=== PATIENT | female | born 1940 | race Caucasian/White ===

== ENCOUNTER 2021-12-20 20:21 | Inpatient (IN) | payer BC, OTHER ==
[~2021-12-20] VITALS: Ht 154.9 cm; Wt 71.7 kg
--- NOTE | 2021-12-20 20:27 | NUR ---
[facility] 860 C/O COUGHED UP DARK COFFEE GROUND BLOOD MIXED WITH SPUTUM. (+) COUGH. ALSO C/O OF BURPING AND EPISODES OF EMESIS. PLACED COMFORTABLY IN BED. VITALS CHECKED. ATTACHED TO MONITOR.
[2021-12-20] MEDS ORDERED: IV NS 0.9% 1,000 ML BAG IV ONE (20:30)
[2021-12-20] MEDS ORDERED: ONDANSETRON HCL/PF 4 MG/2 ML VIAL IVP ONE (20:30)
--- NOTE | 2021-12-20 20:35 | NUR ---
RAD THE BEDSIDE
[2021-12-20] MEDS ORDERED: ONDANSETRON HCL/PF 4 MG/2 ML VIAL ONE (20:43)
--- NOTE | 2021-12-20 20:49 | NUR ---
COVID ANTIGEN SWAB COLLECTED AND SENT TO LAB
--- NOTE | 2021-12-20 20:55 | NUR ---
IV CANNULA G20 INSERTED ON LEFT FA. BLOOD DRAWN AND SENT TO LAB
--- NOTE | 2021-12-20 21:12 | NUR ---
PATIENT CAME FROM CT SCAN
[2021-12-20 21:21] LABS: BASOPHILS # (AUTO) 0.1 K/uL (0.0-0.2); BASOPHILS % (AUTO) 1.1 % (0.0-2.0); EOSINOPHILS % (AUTO) 2.8 % (0.0-6.0); HEMATOCRIT 38 % (33-45); HEMOGLOBIN 12.6 g/dL (11.5-14.8); LYMPHOCYTES # (AUTO) 1.6 K/uL (0.8-4.8); LYMPHOCYTES % (AUTO) 23.6 % (20.0-44.0); MEAN CORPUSCULAR HGB CONC 33 g/dl (31.0-36.0); MEAN CORPUSCULAR VOLUME 85 fL (82-100); MONOCYTES # (AUTO) 0.6 K/uL (0.1-1.30); MONOCYTES % (AUTO) 8.3 % (2.0-12.0); NEUTROPHILS # (AUTO) 4.4 K/uL (1.8-8.9); NEUTROPHILS % (AUTO) 64.2 % (43.0-81.0); PLATELET COUNT (AUTO) 265 K/uL (150-450); WHITE BLOOD COUNT (AUTO) 6.8 K/uL (4.3-11.0)
[2021-12-20 21:46] LABS: CALCIUM, SERUM 9.1 mg/dL (8.5-10.1); CARBON DIOXIDE 22 mmol/L (21-32); CHLORIDE 109 mmol/L (98-107); CREATININE 0.7 mg/dL (0.6-1.3); GLUCOSE 108 mg/dL (74-106); POTASSIUM 5.3 mmol/L (3.5-5.1); SODIUM SERUM 140 mmol/L (136-145); UREA NITROGEN, BLOOD 24 mg/dL (7-18)
[2021-12-20 21:53] LABS: ALANINE AMINOTRANSFERASE 18 U/L (12-78); ALBUMIN 3.3 g/dL (3.4-5.0); ALKALINE PHOSPHATASE 72 U/L (46-116); ASPARTATE AMINOTRANSFERASE 36 U/L (15-37); BILIRUBIN,TOTAL 0.3 mg/dL (0.2-1.0); LIPASE 115 U/L (73-393); TOTAL PROTEIN, SERUM 7.2 g/dL (6.4-8.2)
[2021-12-20] MEDS ORDERED: IV NS 0.9% 1,000 ML IV PRN (22:00)
[2021-12-20] MEDS ORDERED: Z GUARD REMEDY 4 OZ OINT TP PRN (22:00)
[2021-12-20] MEDS ORDERED: MAGNESIUM HYDROXIDE 30 ML UDC PO PRN (22:00)
[2021-12-20] MEDS ORDERED: ONDANSETRON HCL/PF 4 MG/2 ML VIAL IVP PRN (22:00)
[2021-12-20] MEDS ORDERED: PANTOPRAZOLE 40 MG VIAL IV ONE (22:00)
[2021-12-20] MEDS ORDERED: ACETAMINOPHEN 325 MG TABLET PO PRN (22:00)
[2021-12-20] MEDS ORDERED: ZOLPIDEM TARTRATE 5 MG TABLET PO PRN (22:00)
[2021-12-20] MEDS ORDERED: MAG HYDROX/AL HYDROX/SIMETH 30 ML UDC PO PRN (22:00)
[2021-12-20] MEDS ORDERED: PANTOPRAZOLE 40 MG VIAL ONE (22:44)
--- NOTE | 2021-12-20 22:55 | NUR ---
PATIENT IS CONFUSED. REALLY WANTS TO GO HOME. SHE WAS SURPRISED WHY SHE IS IN THE ER AND SHE DENIED THAT SHE WAS COUGHING AND VOMITED COFFEE COLORED VOMITUS. IT WAS EXPLAINED TO HER THAT SHE NEEDS TO BE ADMITTED TO BE MONITORED.
[2021-12-21] VITALS (9 sets, daily range): BP systolic 127–163; BP diastolic 46–93
--- NOTE | 2021-12-21 00:18 | NUR ---
REPORT GIVEN TO VICKIE CRUZ.
--- NOTE | 2021-12-21 00:20 | NUR ---
IV CANNULA G22 INSERTED ON RIGHT FA. PATIENT WAS INSTRUCTED NOT TO REMOVED THE LINE
--- NOTE | 2021-12-21 00:45 | NUR ---
TRANSFER PATIENT TO ROOM
--- NOTE | 2021-12-21 01:41 | NUR ---
MS/REEXAMINER NOTE RECEIVED PT FROM E.R. @0045 VIA GURNEY TO [id number]. PT CAME FROM [facility], SENT TO [place] D/T COFFEE-GROUND EMESIS. PT AWAKE, ALERT TO NAME, UNDERSTANDS CONCEPTS AND ABLE TO CARRY ON CONVERSATIONS, BUT WITH CONFUSION/DISORIENTED TO TIME/PLACE, DOES NOT KNOW WHY SHE'S HERE. PT ABLE TO AMBULATE WITH SLOW STEADY GAIT. IV ACCESS: R-FA #22G INTACT/PATENT/FLUSHES WELL. STARTED NS @75ML/HR ORDERED. PT IN NO ACUTE DISTRESS. SAFETY MEASURES IN PLACE, BED IN LOWEST LOCKED POSITION, S/R UP X2, BED ALARM ON, CALL LIGHT WITHIN REACH. WILL CONT TO MONITOR.
[2021-12-21 01:54] LABS: HEMOGLOBIN 9.6 g/dL (11.5-14.8)
--- NOTE | 2021-12-21 06:00 | NUR ---
RN NOTE PT HAD PULLED OUT IV LINE ON R-FA. REINSERTED IV TO L-FA #22G WITH GOOD BLOOD RETURN AND EKATERINA WELL
[2021-12-21 06:36] LABS: ALBUMIN 3.2 g/dL (3.4-5.0); BILIRUBIN,TOTAL 0.3 mg/dL (0.2-1.0); CALCIUM, SERUM 8.5 mg/dL (8.5-10.1); CREATININE 0.8 mg/dL (0.6-1.3); MAGNESIUM 2.1 mg/dL (1.8-2.4); PHOSPHORUS 2.7 mg/dL (2.5-4.9); TOTAL PROTEIN, SERUM 6.6 g/dL (6.4-8.2)
[2021-12-21 06:41] LABS: BASOPHILS % (AUTO) 0.8 % (0.0-2.0); EOSINOPHILS % (AUTO) 3.4 % (0.0-6.0); HEMATOCRIT 37 % (33-45); HEMOGLOBIN 12.2 g/dL (11.5-14.8); LYMPHOCYTES # (AUTO) 1.6 K/uL (0.8-4.8); LYMPHOCYTES % (AUTO) 30.9 % (20.0-44.0); MEAN CORPUSCULAR HGB CONC 33 g/dl (31.0-36.0); MEAN CORPUSCULAR VOLUME 85 fL (82-100); MONOCYTES # (AUTO) 0.4 K/uL (0.1-1.30); MONOCYTES % (AUTO) 8.2 % (2.0-12.0); NEUTROPHILS % (AUTO) 56.7 % (43.0-81.0); PLATELET COUNT (AUTO) 267 K/uL (150-450); RED BLOOD CELL COUNT(AUTO) 4.38 MIL/uL (4.0-5.2); WHITE BLOOD COUNT (AUTO) 5.3 K/uL (4.3-11.0)
--- NOTE | 2021-12-21 07:02 | NUR ---
RN NOTE PT AWAKE IN BED, ALERT WITH CONFUSION. FREQUENT REORIENTATION PROVIDED. RESPIRATIONS EVEN/UNLABORED. PT AMBULATED TO BR WITH STANDBY ASSIST PROVIDED. PT WITH NO BLEEDING NOTED. NPO OBSERVED ORDERED. PT WITH NO C/O PAIN DURING THE SHIFT. ASSIST WITH ALL ADL'S PROVIDED. NO ACUTE DISTRESS NOTED. SAFETY MEASURES MAINTAINED.
[2021-12-21] MEDS ORDERED: QUET25TA PO (07:29)
[2021-12-21] MEDS ORDERED: CHOL200013 PO (07:29)
[2021-12-21] MEDS ORDERED: LORA10TA68 PO (07:29)
[2021-12-21] MEDS ORDERED: ACET325T53 MC (07:29)
[2021-12-21] MEDS ORDERED: DONE10TA44 PO (07:29)
[2021-12-21] MEDS ORDERED: DOCU-141 PO (07:29)
[2021-12-21] MEDS ORDERED: IPRA42SP NS (07:29)
[2021-12-21] MEDS ORDERED: ASCO500C17 PO (07:29)
[2021-12-21] MEDS ORDERED: QUET50TA PO (07:29)
--- NOTE | 2021-12-21 07:30 | NUR ---
RN OPENING NOTES RECEIVED PATIENT IN BED, AWAKE, VERBALLY RESPONSIVE. NOTED WITH CONFUSION. REORIENTED NEEDED. NO SIGNS OF ACUTE DISTRESS NOTED. STABLE ON ROOM AIR, NO SOB NOTED, BREATHING EVEN AND UNLABORED. DENIES ANY PAIN AT THIS TIME. NOTED WITH IV ACCESS ON LEFT FORE ARM #22G, INTACT AND PATENT WITH NS @ 75ML/HR RUNNING. SAFETY MEASURE IN PLACE. BED IN LOWEST AND LOCKED POSITION, SIDE RAILS UP X2, CALL LIGHT PLACED WITHIN EASY REACH. WILL CONTINUE TO MONITOR PATIENT.
[2021-12-21] MEDS: PANTOPRAZOLE 40 MG VIAL IV SCH ×2 (09:06→20:58)
--- NOTE | 2021-12-21 09:30 | NUR ---
RN NOTES CALLED PATIENTS JOSÉ RYAN AND OBTAINED CONSENT FOR EGD, ANESTHESIA AND BLOOD TRANSFUSION. TELEPHONE/VERBAL CONSENT GIVEN, VERIFIED BY ANOTHER RN AUGUST.
--- NOTE | 2021-12-21 09:50 | NUR ---
RN NOTES PATIENT PICKED UP VIA BED FOR EGD PROCEDURE. IN STABLE CONDITION.
[2021-12-21] MEDS ORDERED: ANESTHESIA TRAY IN PYXIS 1 EA TRAY MC ONE (09:53)
--- NOTE | 2021-12-21 11:00 | NUR ---
RN NOTE PATIENT BACK FROM EGD, TRANSPORTED VIA BED ACCOMPANIED BY SANTINO JOHNSTON, IN STABLE CONDITION. VITAL SIGNS TAKEN FOLLOWS: 127/65, 62, 98.0, 18, SPO2 100% RA. WILL CONTINUE TO MONITOR PATIENT.
[2021-12-21] MEDS: SUCRALFATE 1 G/10 ML UDC GT SCH ×3 (11:54→21:52)
--- NOTE | 2021-12-21 16:35 | NUR ---
RN NOTE PATIENT PULLED OUT PERIPHERAL LINE. NO BLEEDING NOTED. PATIENT REFUSED RE INSERTION.
[2021-12-21] MEDS ORDERED: LORATADINE 10 MG TABLET PO PRN (17:00)
[2021-12-21] MEDS: QUETIAPINE FUMARATE 25 MG TABLET PO SCH (17:15)
--- NOTE | 2021-12-21 18:51 | NUR ---
MS RN CLOSING NOTES PATIENT AWAKE , AMBULATING , VERBALLY RESPONSIVE. NOTED WITH CONFUSION. REORIENTED NEEDED.ALL DUE MEDS GIVEN . NO SIGNS OF ACUTE DISTRESS NOTED. STABLE ON ROOM AIR, NO SOB NOTED, BREATHING EVEN AND UNLABORED. DENIES ANY PAIN AT THIS TIME. EGD WAS DONE AND STILL WATING FOR THE RESULT AND CAME BACK STABLE . IV ACCESS PULLED OUT AND REFUSED TO BE REINSERTED . SAFETY MEASURE IN PLACE. BED IN LOWEST AND LOCKED POSITION, SIDE RAILS UP X2, CALL LIGHT PLACED WITHIN EASY REACH. ENDORSED TO THE NEXT SHIFT
--- NOTE | 2021-12-21 19:00 | NUR ---
received patient alert and orientated X2 smiling and ambulating in the corridor steady on her legs refusing IV placement
[2021-12-21] MEDS ORDERED: DONEPEZIL 5 MG TABLET PO SCH (22:00)
[2021-12-21] MEDS ORDERED: QUETIAPINE FUMARATE 25 MG TABLET PO SCH (22:00)
--- NOTE | 2021-12-22 05:26 | NUR ---
ENDING NOTES: alert and orientated X2 ambulates the corridors steady on her legs pleasent and friendly and is coop[erative slept in bed 9 hours this night no sob on room no noted bleeding or c/o discomfort refusing to have an IV replaced pulled it out on day shift
--- NOTE | 2021-12-22 07:30 | NUR ---
RN OPENING NOTE PATIENT IS IN BED AWAKE, ALERT ORIENTED X 2. ON ROOM AIR SATTING AT 97%. DENIES PAIN, NOT IN ANY FORM OF DISTRESS. BED IS LOCKED IN LOWEST POSITION, 3 SIDE RAILS UP, CALL LIGHT WITHIN REACH. WILL MONITOR THROUGHOUT SHIFT.
[2021-12-22 08:00] VITALS: BP_SYST 152; BP_SYST 167; BP_DIAS 78
[2021-12-22] MEDS ORDERED: CHOLECALCIFEROL 1,000 UNIT TABLET (VIT D3) PO SCH (09:00)
[2021-12-22] MEDS ORDERED: ASCORBIC ACID 500 MG TABLET PO SCH (09:00)
[2021-12-22] MEDS ORDERED: DOCUSATE SODIUM 100 MG CAPSULE PO SCH (09:00)
[2021-12-22] MEDS ORDERED: IPRATROPIUM BROMIDE 0.06% 15 ML NASPR NS SCH (09:00)
[2021-12-22] MEDS: PANTOPRAZOLE 40 MG VIAL IV SCH (10:03)
[2021-12-22] MEDS: QUETIAPINE FUMARATE 25 MG TABLET PO SCH ×2 (10:03→17:00)
[2021-12-22] MEDS: SUCRALFATE 1 G/10 ML UDC GT SCH ×4 (10:07→17:30)
--- NOTE | 2021-12-22 12:44 | NUR ---
RN NOTE PATIENT REFUSED SUCRALFATE ORAL SUSPENSION. STATES SHE WANTS TO GO HOME. EXPLAINED TO HER THE NEED FOR TAKING THE MEDICATION BUT PATIENT STILL REFUSED.
[2021-12-22] MEDS: IPRATROPIUM BROMIDE 0.03 % 30 ML NASPR NS SCH ×2 (12:46→17:00)
[2021-12-22] MEDS ORDERED: PANT40TA49 PO (14:55)
[2021-12-22 16:00] VITALS: BP 153/85
--- NOTE | 2021-12-22 17:00 | NUR ---
MEDICATIONS NOT GIVEN. PATIENT IS DISCHARGED.
--- NOTE | 2021-12-22 17:48 | NUR ---
RN CLOSING NOTE PATIENT DISCHARGED TO [facility] VIA AMBULANCE CREW. REPORT RECEIVED BY ANNALISA JOHNSTON AT [facility]. DISCHARGE PACKET AND EDUCATIONAL MATERIALS EXPLAINED AND GIVEN TO PATIENT. PATIENT IS NOT IN DISTRESS AT TIME OF DISCHARGE. WITH VITAL SIGNS OF T 98.1, RR 20, HR 104, BP 133/85, O2 SAT AT 97%.
[2021-12-22] MEDS ORDERED: PANTOPRAZOLE 40 MG TABLET.DR PO SCH (21:00)
== END 2021-12-22 17:48 | DRG 368 ==
LOC: ER 20:24 → TELE 12-21 00:32 → MED 12-21 00:59 → UNDODISIN 12-22 17:48
PROVIDERS: ADMIT Nurse Practitioner Acute Care; ATTEND Nurse Practitioner Acute Care
PROC: 0DB58ZX Excision of Esophagus, Via Natural or Artificial Opening Endoscopic, Diagnostic (ICD-10-PCS; principal; 2021-12-21)
DX: K21.01 Gastro-esophageal reflux disease with esophagitis, with bleeding (principal); K29.71 Gastritis, unspecified, with bleeding; K57.30 Diverticulosis of large intestine without perforation or abscess without bleeding; E87.5 Hyperkalemia; F32.9 Major depressive disorder, single episode, unspecified; Z20.822 Contact with and (suspected) exposure to COVID-19; F41.9 Anxiety disorder, unspecified; G30.0 Alzheimer's disease with early onset; F02.80 Dementia in other diseases classified elsewhere, unspecified severity, without behavioral disturbance, psychotic disturbance, mood disturbance, and anxiety; F25.9 Schizoaffective disorder, unspecified; Z86.16 Personal history of COVID-19; H93.19 Tinnitus, unspecified ear; E78.5 Hyperlipidemia, unspecified; I10 Essential (primary) hypertension; M19.90 Unspecified osteoarthritis, unspecified site; R79.89 Other specified abnormal findings of blood chemistry; K44.9 Diaphragmatic hernia without obstruction or gangrene
CPT/HCPCS: 36415; 71045-TC; 80048-TC; 80053-TC; 80076-TC; 83690-TC; 83735-TC; 84100-TC; 84484-TC; 85025-TC; 85027-TC; 85730-TC; 86850-TC; 87081-TC; 88305-TC; 88313-TC; C9113; C9803; G0378; J0330; J2405; J2704; J3490; J7030